=== PATIENT | female | born 1975 | race Caucasian/White ===

== ENCOUNTER 2024-01-26 15:51 | Emergency (ER) | payer BC, SELFPAY ==
--- NOTE | ~2024-01-26 | XR_ITS ---
XR toe 5th RT min 2V Ordering provider: Anuradha Starr APRN History: . injury yesterday morning,proximal phalanx pain . Comparison: None. FINDINGS: BONES: Possible Fracture at the base of the distal phalanx of the little toe medially. JOINT SPACES: Normal. SOFT TISSUES: Soft tissue swelling is seen in the area of the little toe. IMPRESSION: Possible Fracture at the base of the distal phalanx of the little toe medially. Follow-up advised. No other fractures. Reviewed, dictated and finalized at location A.
[2024-01-26 16:04] VITALS: BP 121/77; PULSE 58; RESP 16; TEMP 36.7; O2SAT 100
--- NOTE | 2024-01-26 16:04 | ED.EXTPRO ---
HPI - Extremity Problem General Chief complaint: Extremity Problem,Nontraumatic Stated complaint: rt foot examination Source: patient Mode of arrival: ambulatory Limitations: no limitations History of Present Illness HPI Narrative: 48-year-old female presented for complaint of right little toe pain and bruising after injury last night. She states she struck the door jam with the foot. Took ibuprofen last night. Has been walking on it all day today. Has not taken anything for pain, rates 9/10. Related Data Home Medications Medication Instructions Recorded Confirmed No Home Medications 01/26/24 01/26/24 Allergies Allergy/AdvReac Type Severity Reaction Status Date / Time No Known Allergies Allergy Mild Verified 01/26/24 16:05 Review of Systems Review of Systems: CONSTITUTIONAL: Denies body aches, fever, chills CARDIOVASCULAR: Denies chest pain, palpitations, or edema. RESPIRATORY: Denies cough or dyspnea. GASTROINTESTINAL: Denies abdominal pain, nausea, vomiting, or diarrhea. SKIN: Denies wounds. MUSCULOSKELETAL: Reports right 5th toe pain NEUROLOGIC: Denies headache, numbness, tingling, or weakness. All systems reviewed & are unremarkable except as noted in HPI and below PMFSH Comments At time of signature, I have reviewed and agree with nursing past medical, surgical, social and family history unless otherwise noted. Please see nursing chart for further information. There is no relevant family history pertinent to the presenting complaint Exam Narrative: GENERAL: Well-appearing CHEST: Speaks in full sentences. No respiratory distress. HEART: Regular rate and rhythm. Normal and equal peripheral pulses. EXTREMITIES: Right foot has normal strength and sensation, slightly limited range of motion of right 5th toe due to subjective pain with movement. MTP ecchymosis with point tenderness. Medial aspect of the toe with open superficial abrasion vs ruptured blister. No obvious deformity; alignment normal, pulse palpable and equal bilaterally, skin warm, dry, pink. Capillary refill less than 3 seconds. SKIN: Warm, dry, no rash. NEURO: Alert and oriented x3. PSYCH: Normal mood and affect Extrem: Ankle/foot/toe images: 1. area of pain and bruising Course Course Emergency Course: Patient is aware of diagnosis, understands and agrees to treatment plan. Anticipatory guidance given. Patient agrees to follow-up as directed and is aware of reasons to seek care at the emergency department. Portions of this record may have been created with voice recognition software Level of Care: Express Care Visit Vital Signs Vital signs: Vital Signs Temperature 98.0 F 01/26/24 16:04 Pulse Rate 58 L 01/26/24 16:04 Respiratory Rate 16 01/26/24 16:04 Blood Pressure 121/77 01/26/24 16:04 Pulse Oximetry 100 01/26/24 16:04 Oxygen Delivery Room Air 01/26/24 16:04 Temperature 98.0 F 01/26/24 16:04 Pulse Rate 58 L 01/26/24 16:04 Respiratory Rate 16 01/26/24 16:04 Blood Pressure 121/77 01/26/24 16:04 Pulse Oximetry 100 01/26/24 16:04 Oxygen Delivery Room Air 01/26/24 16:04 Reviewed MDM - Extremity (Nontraumatic) MDM Narrative Medical decision making narrative: Results of x-ray reviewed with patient. Discussed physical exam findings. Post op shoe applied. Advised supportive measures and signs/symptoms to go to the ER. Pt is appropriate for outpt treatment and f/u. Differential Diagnosis Differential diagnosis: Likely other (toe fracture, dislocation, contusion, abrasion) Imaging Data Radiologist's impression: Patient: Nikos Oliver : 1975 MR#: [id number] Age: 48 Acct:[id number] Loc: [facility] ADM Date: 01/26/24Attending Dr: Ordering Physician: Anuradha Starr APRN Date of Service: 01/26/24 Procedure(s): XR toe 5th RT min 2V Accession Number(s): [id number] cc: Anuradha Starr APRN; VOCATIONAL REHABILITATION ADMINISTRATOR PHYSICIAN~ XR toe 5th RT min 2V
== END 2024-01-26 16:40 | disposition home or self-care (01) ==
PROVIDERS: Emergency Provider Nurse Practitioner Family
DX: M79.674 Pain in right toe(s) (principal)
CPT/HCPCS: 73660; 99213; G0463